=== PATIENT | male | born 1935 | race Caucasian/White ===

== ENCOUNTER 2020-07-28 15:10 | Inpatient (IN) ==
[2020-07-28 15:28] LABS: ABS Lymphocytes 0.7 10^3/ul (1.0-4.8); ABS Monocytes 0.7 10^3/ul (0-0.8); ABS Neutrophils 9.9 10^3/ul (1.5-7.7); Hematocrit 33 % (42-52); Hemoglobin 10.4 g/dL (14.0-18.0); Lymphocyte % 6.3 %; Mean Corpuscular HGB Conc 32 g/dL (31-36); Mean Corpuscular Hemoglobin 27 pg (27-31); Mean Corpuscular Volume 86 fL (80-94); Mean Platelet Volume 7.6 fL (7.4-10.4); Platelet Count 401 10^3/uL (150-450); Red Blood Count 3.85 10^6 /uL (4.18-5.48); Red Cell Distribution Width 18 % (10-15); White Blood Count 11.4 10^3/uL (3.5-10.8)
[2020-07-28 15:40] LABS: Activated Partial Thrombo Time 28.3 seconds (26.0-38.0); INR 1.37 (0.82-1.09)
[2020-07-28 15:43] LABS: Albumin 2.7 g/dL (3.2-5.2); CO2 Carbon Dioxide 18 mmol/L (22-32); Calcium 9.3 mg/dL (8.6-10.3); Potassium 3.1 mmol/L (3.5-5.0)
[2020-07-28 15:44] LABS: Anion Gap 12 mmol/L (2-11); Chloride 118 mmol/L (101-111); Sodium 148 mmol/L (135-145)
[2020-07-28 15:49] LABS: ALT 18 U/L (7-52); AST 21 U/L (13-39); Albumin/Globulin Ratio 0.6 (1-3); Alkaline Phosphatase 77 U/L (34-104); BUN/Creatinine Ratio 32.4 (8-20); Blood Urea Nitrogen 67 mg/dL (6-24); C Reactive Protein 259.33 mg/L (<8.01); EGFR Non-African American 30.6 (>60); Globulin 4.6 g/dL (2-4); Glucose 343 mg/dL (70-100); Total Protein 7.3 g/dL (6.4-8.9)
[2020-07-28 15:50] LABS: Troponin I 0.05 ng/mL (<0.03)
[2020-07-28] MEDS ORDERED: Cefepime 2 GM in NS 0.9% 50 ML 50 ML IVPB ONE (15:50)
[2020-07-28] MEDS ORDERED: Dexamethasone IV 4 MG/ML VIAL 1 ml VIAL IV SLOW PU ONE (15:53)
[2020-07-28] MEDS ORDERED: NS 0.9% 50 ML 50 ML ONE (15:57)
[2020-07-28] MEDS ORDERED: NS 0.9% 1000 ml BAG 500 ML IV ONE (15:58)
[2020-07-28] MEDS ORDERED: Cefepime 2 GM IV - ED ONCE IV ONE (16:00)
[2020-07-28 16:08] LABS: Influenza A Molecular Negative (Negative); Influenza B Molecular Negative (Negative)
[2020-07-28 16:30] LABS: LDH 194 U/L (140-271)
[2020-07-28 16:31] LABS: Ferritin 634.4 ng/mL (24-336)
[2020-07-28] MEDS ORDERED: Ondansetron 4 mg VIAL 2 MG/ML 2 ml VIAL IV PRN (20:37)
[2020-07-28] MEDS ORDERED: Dextrose 50% Syringe 50 ml 25 GM/50 ML SYRINGE IV PUSH PRN (20:55)
[2020-07-28] MEDS ORDERED: Enoxaparin 30 MG/0.3 ML SYR SUBCUT SCH (21:00)
[2020-07-28] MEDS ORDERED: Remdesivir 100 mg Vial 200 MG in NS 0.9% 250 ml 210 ML IV ONE (23:00)
[2020-07-28] MEDS ORDERED: Lactated Ringers 1000 ml BAG 1,000 ML IV SCH (23:00)
[2020-07-28 23:09] LABS: INR 1.35 (0.82-1.09)
[2020-07-29] MEDS: Enoxaparin 30 MG/0.3 ML SYR SUBCUT SCH ×3 (02:15→21:19)
[2020-07-29] MEDS: Insulin GLARGINE 100 un/ml 10 ml VIAL SUBCUT SCH ×3 (02:15→21:17)
[2020-07-29] MEDS: Senna TAB 8.6 mg TAB PO SCH ×2 (02:29→08:19)
[2020-07-29] MEDS: Azithromycin 500 mg/250 ml NS 500 MG/250 ML BAG IVPB SCH ×2 (03:06→21:11)
[2020-07-29 03:10] LABS: Total Iron Binding Capacity 161 mcg/dL (250-450); Transferrin 115 mg/dL (203-362)
[2020-07-29 03:12] LABS: % Iron Saturation 12 % (15-55); Iron < 20 ug/dL (50-212); Unsaturated Iron Binding < 146 ug/dL
[2020-07-29] MEDS: KCL 10 MEQ/50 ML IVPREMIX 10 MEQ/50 ML BAG IV SCH ×2 (04:01→06:04)
[2020-07-29 06:03] LABS: INR 1.42 (0.82-1.09)
[2020-07-29 06:17] LABS: Albumin 2.4 g/dL (3.2-5.2); Albumin/Globulin Ratio 0.5 (1-3); BUN/Creatinine Ratio 37.3 (8-20); Calcium 8.9 mg/dL (8.6-10.3); EGFR African American 38.3 (>60); EGFR Non-African American 31.7 (>60); Globulin 4.5 g/dL (2-4); Potassium 3.1 mmol/L (3.5-5.0); Total Bilirubin 0.4 mg/dL (0.2-1.0); Total Protein 6.9 g/dL (6.4-8.9)
[2020-07-29] MEDS ORDERED: Potassium Chloride LIQUID 20 MEQ/15 ML LIQUID PO ONE (07:01)
[2020-07-29 07:38] LABS: Hematocrit 31 % (42-52); Hemoglobin 9.8 g/dL (14.0-18.0); Mean Corpuscular HGB Conc 32 g/dL (31-36); Mean Corpuscular Hemoglobin 27 pg (27-31); Mean Corpuscular Volume 85 fL (80-94); Mean Platelet Volume 7.5 fL (7.4-10.4); Platelet Count 325 10^3/uL (150-450); Red Blood Count 3.62 10^6 /uL (4.18-5.48); Red Cell Distribution Width 18 % (10-15); White Blood Count 11.1 10^3/uL (3.5-10.8)
[2020-07-29 07:55] LABS: ALT 17 U/L (7-52); AST 29 U/L (13-39); Albumin 2.4 g/dL (3.2-5.2); Albumin/Globulin Ratio 0.5 (1-3); Alkaline Phosphatase 68 U/L (34-104); Globulin 4.4 g/dL (2-4); Indirect Bilirubin 0.1 mg/dL (0.3-1.0); Magnesium 1.9 mg/dL (1.9-2.7); Total Protein 6.8 g/dL (6.4-8.9)
[2020-07-29] MEDS ORDERED: NS 0.45% 1000 ml BAG 1,000 ML IV SCH ×3 (08:00→15:47)
[2020-07-29] MEDS: Cholecalciferol (VIT D3) 1,000 unit TAB PO SCH (08:18)
[2020-07-29] MEDS: Cefepime 2 GM in Dextrose 2 GM/50 ML BAG IV SCH (09:01)
[2020-07-29 09:05] LABS: ABS Lymphocytes 0.7 10^3/ul (1.0-4.8); ABS Monocytes 0.7 10^3/ul (0-0.8); ABS Neutrophils 9.7 10^3/ul (1.5-7.7); Lymphocyte % 6.3 %
[2020-07-29 10:03] LABS: Troponin I 0.06 ng/mL (<0.03)
[2020-07-29 14:53] LABS: Troponin I 0.15 ng/mL (<0.03)
[2020-07-29 17:48] LABS: Urine Appearance Cloudy; Urine Bacteria Absent (Absent); Urine Bilirubin Negative (Negative); Urine Blood 2+ (Negative); Urine Color Yellow; Urine Glucose Negative (Negative); Urine Ketones Trace (Negative); Urine Nitrite Negative (Negative); Urine Protein 2+(100 mg/dL) (Negative); Urine Red Blood Cell 3+(>10/hpf) (Absent); Urine Squamous Epithelial Cell Present (Absent); Urine Urobilinogen Negative (Negative); Urine White Blood Cell 2+(11-20/hpf) (Absent)
[2020-07-29 17:51] LABS: Urine Creatinine Concentration 102.77 mg/dL
[2020-07-29 19:03] LABS: BUN/Creatinine Ratio 41.1 (8-20); Blood Urea Nitrogen 81 mg/dL (6-24); CO2 Carbon Dioxide 17 mmol/L (22-32); Calcium 8.6 mg/dL (8.6-10.3); EGFR African American 39.2 (>60); EGFR Non-African American 32.4 (>60); Glucose 352 mg/dL (70-100); Potassium 3.4 mmol/L (3.5-5.0)
[2020-07-29 19:07] LABS: Anion Gap 10 mmol/L (2-11); Chloride 124 mmol/L (101-111); Sodium 151 mmol/L (135-145); Troponin I 0.07 ng/mL (<0.03)
[2020-07-29] MEDS ORDERED: Dextrose 50% Syringe 50 ml 25 GM/50 ML SYRINGE IV PUSH PRN (19:22)
[2020-07-29] MEDS ORDERED: Potassium Chlor 20 meq TAB.ER PO ONE (19:44)
[2020-07-29] MEDS ORDERED: D5W 1000 ml BAG 1,000 ML IV SCH (20:00)
[2020-07-29] MEDS: D5W 1000 ml BAG 1,000 ML IV SCH (21:20)
[2020-07-30] MEDS: D5W 1000 ml BAG 1,000 ML IV SCH (04:28)
[2020-07-30 04:58] LABS: BUN/Creatinine Ratio 41.7 (8-20); Calcium 8.7 mg/dL (8.6-10.3); EGFR African American 37.7 (>60); EGFR Non-African American 31.1 (>60); Potassium 3.2 mmol/L (3.5-5.0)
[2020-07-30 07:24] LABS: INR 1.36 (0.82-1.09)
[2020-07-30 07:30] LABS: Hematocrit 34 % (42-52); Hemoglobin 10.4 g/dL (14.0-18.0); Mean Corpuscular HGB Conc 31 g/dL (31-36); Mean Corpuscular Hemoglobin 27 pg (27-31); Mean Corpuscular Volume 86 fL (80-94); Mean Platelet Volume 8.1 fL (7.4-10.4); Platelet Count 320 10^3/uL (150-450); Red Blood Count 3.92 10^6 /uL (4.18-5.48); Red Cell Distribution Width 19 % (10-15); White Blood Count 11.1 10^3/uL (3.5-10.8)
[2020-07-30] MEDS ORDERED: Potassium Chlor 10 meq TAB PO SCH (09:00)
[2020-07-30] MEDS ORDERED: NS 0.45% 1000 ml BAG 1,000 ML IV SCH (09:00)
[2020-07-30] MEDS ORDERED: Potassium Chlor 20 meq TAB.ER PO ONE (09:01)
[2020-07-30 09:32] LABS: Albumin 2.3 g/dL (3.2-5.2); Albumin/Globulin Ratio 0.5 (1-3); BUN/Creatinine Ratio 43.3 (8-20); Calcium 8.7 mg/dL (8.6-10.3); EGFR African American 38.3 (>60); EGFR Non-African American 31.7 (>60); Globulin 4.3 g/dL (2-4); Magnesium 1.9 mg/dL (1.9-2.7); Potassium 3.3 mmol/L (3.5-5.0); Total Bilirubin 0.3 mg/dL (0.2-1.0); Total Protein 6.6 g/dL (6.4-8.9)
[2020-07-30] MEDS: Insulin GLARGINE 100 un/ml 10 ml VIAL SUBCUT SCH ×2 (10:14→21:21)
[2020-07-30] MEDS: Cholecalciferol (VIT D3) 1,000 unit TAB PO SCH (10:18)
[2020-07-30] MEDS: Enoxaparin 30 MG/0.3 ML SYR SUBCUT SCH ×2 (10:27→21:21)
[2020-07-30] MEDS: Cefepime 2 GM in Dextrose 2 GM/50 ML BAG IV SCH (10:32)
[2020-07-30] MEDS ORDERED: D5W 1000 ml BAG 1,000 ML IV SCH ×2 (10:47→14:24)
[2020-07-30] MEDS ORDERED: Furosemide 20 mg/2 ml IV VIAL IV SLOW PU ONE (14:24)
[2020-07-30 18:22] LABS: BUN/Creatinine Ratio 40.6 (8-20); Calcium 8.4 mg/dL (8.6-10.3); EGFR African American 35.1 (>60); Potassium 3.8 mmol/L (3.5-5.0)
[2020-07-30] MEDS ORDERED: Sodium Bicarb 650 mg (ANTACID) TAB PO ONE (18:40)
[2020-07-30] MEDS: Azithromycin 500 mg/250 ml NS 500 MG/250 ML BAG IVPB SCH (21:22)
[2020-07-31 06:36] LABS: Hematocrit 35 % (42-52); Hemoglobin 11.1 g/dL (14.0-18.0); Mean Corpuscular HGB Conc 31 g/dL (31-36); Mean Corpuscular Hemoglobin 27 pg (27-31); Mean Corpuscular Volume 85 fL (80-94); Mean Platelet Volume 8.2 fL (7.4-10.4); Platelet Count 324 10^3/uL (150-450); Red Blood Count 4.15 10^6 /uL (4.18-5.48); Red Cell Distribution Width 19 % (10-15); White Blood Count 16.9 10^3/uL (3.5-10.8)
[2020-07-31 06:50] LABS: Albumin 2.2 g/dL (3.2-5.2); Albumin/Globulin Ratio 0.5 (1-3); BUN/Creatinine Ratio 43.6 (8-20); Calcium 8.6 mg/dL (8.6-10.3); EGFR African American 32.1 (>60); EGFR Non-African American 26.6 (>60); Globulin 4.4 g/dL (2-4); Potassium 3.9 mmol/L (3.5-5.0); Total Bilirubin 0.3 mg/dL (0.2-1.0); Total Protein 6.6 g/dL (6.4-8.9)
[2020-07-31 07:07] LABS: INR 1.38 (0.82-1.09)
[2020-07-31 07:40] LABS: C Reactive Protein 225.47 mg/L (<8.01)
[2020-07-31] MEDS: Cholecalciferol (VIT D3) 1,000 unit TAB PO SCH (09:32)
[2020-07-31] MEDS: Insulin GLARGINE 100 un/ml 10 ml VIAL SUBCUT SCH ×2 (09:32→21:23)
[2020-07-31] MEDS: Cefepime 2 GM in Dextrose 2 GM/50 ML BAG IV SCH (09:39)
[2020-07-31] MEDS: Enoxaparin 30 MG/0.3 ML SYR SUBCUT SCH ×2 (09:39→21:24)
[2020-07-31] MEDS ORDERED: Piperacillin/Tazobac ADVAN 3.375 GM in NS 0.9% 100 ml BAG 100 ML IV ONE (20:07)
[2020-07-31 20:54] LABS: Calcium 8.5 mg/dL (8.6-10.3); Potassium 4.3 mmol/L (3.5-5.0)
[2020-07-31 21:00] LABS: BUN/Creatinine Ratio 41.1 (8-20); EGFR African American 24.9 (>60); EGFR Non-African American 20.6 (>60)
[2020-07-31] MEDS ORDERED: D5W 1000 ml BAG 1,000 ML IV SCH (21:00)
[2020-07-31] MEDS ORDERED: Zosyn per Pharmacy NOTE FOLLOW UP SCH (21:00)
[2020-08-01] MEDS: ZOSYN 3.375 GM Q8H per EXTENDED INFUSION IV SCH ×2 (03:21→12:12)
[2020-08-01 06:11] LABS: Hematocrit 38 % (42-52); Hemoglobin 11.9 g/dL (14.0-18.0); Mean Corpuscular HGB Conc 32 g/dL (31-36); Mean Corpuscular Hemoglobin 27 pg (27-31); Mean Corpuscular Volume 86 fL (80-94); Mean Platelet Volume 8.4 fL (7.4-10.4); Platelet Count 315 10^3/uL (150-450); Red Blood Count 4.38 10^6 /uL (4.18-5.48); Red Cell Distribution Width 18 % (10-15); White Blood Count 15.7 10^3/uL (3.5-10.8)
[2020-08-01 06:15] LABS: INR 1.34 (0.82-1.09)
[2020-08-01 06:33] LABS: ALT 25 U/L (7-52); AST 47 U/L (13-39); Albumin/Globulin Ratio 0.5 (1-3); Alkaline Phosphatase 99 U/L (34-104); CO2 Carbon Dioxide 15 mmol/L (22-32); Calcium 8.5 mg/dL (8.6-10.3); EGFR African American 21.1 (>60); EGFR Non-African American 17.4 (>60); Globulin 4.2 g/dL (2-4); Glucose 223 mg/dL (70-100); Potassium 4.1 mmol/L (3.5-5.0); Total Protein 6.2 g/dL (6.4-8.9)
[2020-08-01 06:38] LABS: Anion Gap 13 mmol/L (2-11); Chloride 120 mmol/L (101-111); Sodium 148 mmol/L (135-145)
[2020-08-01 06:51] LABS: BUN/Creatinine Ratio 39.8 (8-20); Blood Urea Nitrogen 134 mg/dL (6-24)
[2020-08-01] MEDS ORDERED: Lactated Ringers 500 ml BAG 500 ML IV ONE ×3 (09:00→15:54)
[2020-08-01] MEDS ORDERED: Remdesivir 100 mg Vial 100 MG in NS 0.9% 250 ml 230 ML IV SCH (11:00)
[2020-08-01] MEDS: Cholecalciferol (VIT D3) 1,000 unit TAB PO SCH (11:11)
[2020-08-01] MEDS: Enoxaparin 30 MG/0.3 ML SYR SUBCUT SCH (12:10)
[2020-08-01] MEDS: Insulin GLARGINE 100 un/ml 10 ml VIAL SUBCUT SCH (12:11)
[2020-08-01] MEDS ORDERED: D5LR 1000 ml BAG 1,000 ML IV SCH (13:00)
[2020-08-01] MEDS ORDERED: Morphine ORAL CONCENTRATE 5 MG/0.25 ML ORAL.SYRIN SL PRN (15:49)
[2020-08-01] MEDS ORDERED: LORazepam 2 mg VIAL 1 ml IV PUSH PRN (15:51)
[2020-08-01] MEDS ORDERED: Lorazepam PYXIS KEY PRN (15:51)
[2020-08-01] MEDS ORDERED: Atropine 1% (ORAL/SL) 15 ML BTL SL PRN (15:52)
[2020-08-01] MEDS ORDERED: D5W 1/2 NS 1000 ml BAG 1,000 ML IV SCH ×2 (17:00→21:15)
[2020-08-01] MEDS: Morphine 2 MG/ML SYRINGE IV PRN (20:37)
[2020-08-02] MEDS: Morphine 2 MG/ML SYRINGE IV PRN (00:23)
[2020-08-02 02:12] VITALS: BP 72/54
== END 2020-08-02 04:15 | disposition expired | DRG 871 ==
LOC: ED 15:10 → MED 22:47
PROVIDERS: ADMIT Internal Medicine; ATTEND Internal Medicine Interventional Cardiology